=== PATIENT | female | born 1930 | race Caucasian/White ===

== ENCOUNTER 2018-06-18 16:21 | Emergency (ER) | payer OTHER, BC ==
--- NOTE | 2018-06-18 17:32 | ER Document Report ---
ED General - General TRAVEL OUTSIDE OF THE [place] IN LAST 30 DAYS: No <MIKE HANLEY - Last Filed: 06/18/18 19:23> <ONEIL ANAYA - Last Filed: 06/18/18 22:23> - General Chief Complaint: Near Syncope Stated Complaint: SYNCOPE Time Seen by Provider: 06/18/18 16:54 - HPI Notes: Patient is an 87-year-old female with a history of stage IV melanoma, COPD, bronchiectasis, hypertension, lymphedema RLL (with intermittent cellulitis hx) who presents to the ED with daughters complaining of a witnessed near syncopal event when there at the store this afternoon. Pt states that she started to feel lightheaded and weak. Daughter states that she was walking when she started to get weak and the daughter aided her to the ground. Daughter states that she was having difficulty speaking at that time. Her symptoms lasted for about 1-2 minutes and then resolved. Patient states that she could hear people talking to her, but did have trouble speaking. Patient states that she did have darker urine this morning and has not been drinking as much water she should have been. She otherwise is still eating and drinking without difficulties. She is urinating normally and having normal bowel movements. She has not noticed any black stool or hematochezia. She denies any drug allergies. She is not currently on any chemotherapy or radiation therapy. Her oncologist is at [facility]. Patient states that she otherwise feels back to normal. Denies any headache, fever, head injury, neck pain, changes in vision/speech/ mentation/hearing, URI, sore throat, chest pain, palpitations, cough, shortness of breath, wheeze, dyspnea, abdominal pain, nausea/vomiting/diarrhea, urinary retention, dysuria, hematuria, back pain, loss of control of bowel or bladder, numbness/tingling, saddle anesthesia, muscle paralysis/weakness, or rash. ( MIKE HANLEY) - Related Data Allergies/Adverse Reactions: codeine Allergy (Verified 06/18/18 19:38) morphine Allergy (Verified 06/18/18 19:38) Sulfa (Sulfonamide Antibiotics) Allergy (Verified 06/18/18 19:38) Past Medical History - Social History Smoking Status: Unknown if Ever Smoked Family History: Reviewed & Not Pertinent <MIKE HANLEY - Last Filed: 06/18/18 19:23> Review of Systems - Review of Systems -: Yes All other systems reviewed and negative <MIKE HANLEY - Last Filed: 06/18/18 19:23> Physical Exam <MIKE HANLEY - Last Filed: 06/18/18 19:23> <ONEIL ANAYA - Last Filed: 06/18/18 22:23> - Vital signs Vitals: Resp BP 5 L 162/67 H 06/18/18 18:28 06/18/18 18:28 - Notes Notes: PHYSICAL EXAMINATION: GENERAL: Well-appearing, well-nourished and in no acute distress. A&Ox4. Answers questions appropriately. happy, talkative, smiling, pleasant HEAD: Atraumatic, normocephalic. Non-tender. EYES: Pupils equal round and reactive to light, extraocular movements intact, sclera anicteric, conjunctiva are normal. No nystagmus. vis owens intact. ENT: EAC clear b/l. TM's intact b/l without erythema, fluid, or perforation. Nares patent and without discharge. oropharynx clear without exudates. No tonsilar hypertrophy or erythema. Moist mucous membranes. No sinus tenderness. NECK: Normal range of motion, supple without lymphadenopathy. No rigidity/ meningismus. No midline tenderness. LUNGS: Breath sounds clear to auscultation bilaterally and equal. No wheezes rales or rhonchi. HEART: Regular rate and rhythm without murmurs, rubs, gallops. ABDOMEN: Soft, nontender, nondistended abdomen. No guarding, no rebound. Normal bowel sounds present. No CVA tenderness bilaterally. Musculoskeletal: Ext b/l: FROM to passive/active. Strength 5+/5. No deficits noted. No bony tenderness of extremities. Extremities: trace pitting edema rt LE with mild erythema and + mild tenderness associated to the anterior lower leg. No fluctuance/abscess/streaks/ discharge. Peripheral pulses 2+. Capillary refill less than 2 seconds. NEUROLOGICAL: NIH 0. GCS 15. Cranial nerves grossly intact. Normal speech. Normal sensory, motor exams. Reflexes 2+ b/l. ERICH's negative. Pronator drift negative. Heel/tolentino, finger/nose wnl. PSYCH: Normal mood, normal affect. SKIN: see above. + small skin tear rt posterior forearm. (MIKE HANLEY) Course - Laboratory Result Diagrams: 06/18/18 17:26 06/18/18 17:26 <MIKE HANLEY - Last Filed: 06/18/18 19:23> - Laboratory Result Diagrams: 06/18/18 17:26 06/18/18 17:26 <ONEIL ANAYA - Last Filed: 06/18/18 22:23> - Re-evaluation Re-evalutation: 06/18/18 17:30 Pt was hesitant about having a head CT performed. I did discuss this with Dr. Clark who recommended d-dimer and obtaining the head CT, possible chest CT pending d-dimer. He states that she needs to have the head CT performed or she may have to sign out AMA. I did review this with the patient who is agreeable to the head CT and work up we have planned at this time. 06/18/18 19:21 CBC, CMP, cardiac enzyme x1/ekg, UA, head CT unremarkable for acute pathology. Transfer of care to Oneil LUO at bedside. (MIKE HANLEY) 06/18/18 2 sets of negative troponins. CTA with nodules noted but no acute findings including pulmonary embolism. Vital signs are unremarkable on my evaluation. Patient is comfortable and well-appearing. Has eaten, is requesting to go home. CT of the head was negative as well. Urinalysis is unremarkable. I discussed again with Dr. Clark. Because of patient's delta troponins, CTA, CT of the head, unremarkable laboratory workup, and monitoring without decompensation including no evidence of tachyarrhythmia at this time it is appropriate for patient to be discharged with very close primary care follow-up and strict return precautions. I discussed this in detail with family and patient, they state understanding and agreement with plan. (ONEIL ANAYA) - Vital Signs Vital signs: Temp Pulse Resp BP Pulse Ox 97.8 F 73 16 157/73 H 06/18/18 21:30 06/18/18 18:33 06/18/18 21:30 06/18/18 21:30 - Laboratory Laboratory results interpreted by me: 06/18/18 06/18/18 06/18/18 17:26 17:26 17:26 Hgb 11.0 L Hct 33.3 L RDW 15.0 H Seg Neutrophils % 82.2 H Lymphocytes % 7.4 L D-Dimer 1.53 H Glucose 153 H POC Glucose Urine Urobilinogen Urine Ascorbic Acid 06/18/18 06/18/18 18:20 19:33 Hgb Hct RDW Seg Neutrophils % Lymphocytes % D-Dimer Glucose POC Glucose 129 H Urine Urobilinogen 2.0 H Urine Ascorbic Acid 20 H Discharge <MIKE HANLEY - Last Filed: 06/18/18 19:23> <ONEIL ANAYA - Last Filed: 06/18/18 22:23> - Discharge Clinical Impression: Episode of syncope Qualifiers: Syncope type: unspecified Qualified Code(s): R55 - Syncope and collapse Condition: Stable Disposition: HOME, SELF-CARE Additional Instructions: The exact cause of your syncopal episode (passing out) is uncertain at this time. Your workup to this point did not show any concerning abnormalities including low blood counts, heart attack, blood clot, etc. Follow-up very closely with your primary provider, call them tomorrow for close follow-up. Take your CAT scan report from today's test to your provider. See additional instructions below. Syncopal Episode Syncope (fainting or near-fainting) can occur from many different health problems. Or it can be a simple fainting spell requiring no treatment. It is safe for you to go home, but further evaluation will likely be necessary. Your work-up may include tests for internal bleeding, heart disease, medication problems, or near-strokes. Tests are not always required, however, depending on the nature of your problem. The warning signs of an impending faint include: dizziness, lightheadedness , nausea, hot flashes, tingling, and weakness. If this happens, lay down and put your feet up, then wait until all of these symptoms have passed before standing up again. If these episodes become recurrent, or if you develop chest pain, heart palpitations, mental confusion, blurred vision, or headache, then you should call the physician, or go to the emergency room.
[2018-06-18 17:38] LABS: ABSOLUTE BASOPHILS # (AUTO) 0.1 10^3/uL (0.0-0.2); ABSOLUTE EOSINOPHILS # (AUTO) 0.1 10^3/uL (0.0-0.6); ABSOLUTE LYMPHOCYTES (AUTO) 0.7 10^3/uL (0.5-4.7); ABSOLUTE MONOCYTES (AUTO) 0.8 10^3/uL (0.1-1.4); ABSOLUTE NEUT (AUTO) 7.6 10^3/uL (1.7-8.2); BASOPHILS % (AUTO) 0.8 % (0-2); HEMATOCRIT 33.3 % (36.0-47.0); LYMPHOCYTES % (AUTO) 7.4 % (13-45); MEAN CORPUSCULAR HEMOGLOBIN 27.4 pg (27.0-33.4); MEAN CORPUSCULAR HGB CONC 32.9 g/dL (32.0-36.0); MEAN CORPUSCULAR VOLUME 83 fl (80-97); MONOCYTES % (AUTO) 8.6 % (3-13); PLATELET COUNT 310 10^3/uL (150-450); SEGMENTED NEUTROPHILS % (AUTO) 82.2 % (42-78); TOTAL CELLS COUNTED % (AUTO) 100 %; WHITE BLOOD COUNT 9.2 10^3/uL (4.0-10.5)
[2018-06-18 17:55] LABS: ALANINE AMINOTRANSFERASE 21 U/L (9-52); ALBUMIN 3.9 g/dL (3.5-5.0); ALKALINE PHOSPHATASE 84 U/L (38-126); ANION GAP 10 (5-19); ASPARTATE AMINO TRANSFERASE 24 U/L (14-36); BILIRUBIN,DIRECT 0.3 mg/dL (0.0-0.4); BILIRUBIN,TOTAL 0.4 mg/dL (0.2-1.3); BLOOD UREA NITROGEN 18 mg/dL (7-20); CALCIUM 9.5 mg/dL (8.4-10.2); CARBON DIOXIDE 29 mmol/L (22-30); CHLORIDE 99 mmol/L (98-107); CREATINE KINASE 53 U/L (30-135); GLUCOSE 153 mg/dL (75-110); POTASSIUM 4.2 mmol/L (3.6-5.0); SODIUM 137.8 mmol/L (137-145)
[2018-06-18 18:11] LABS: CREATINE KINASE MB 1.93 ng/mL (<4.55)
[2018-06-18 18:13] LABS: TROPONIN I < 0.012 ng/mL
--- NOTE | 2018-06-18 18:18 | RADIOLOGY REPORT (SQ) ---
EXAM DESCRIPTION: CT HEAD WITHOUT COMPLETED DATE/TIME: 06/18/2018 6:06 pm REASON FOR STUDY: lightheaded COMPARISON: None. TECHNIQUE: Axial images acquired through the brain without intravenous contrast. Images reviewed wi th bone, brain and subdural windows. Additional sagittal and coronal reconstructions were generated. Images stored on PACS. All CT scanners at this facility use dose modulation, iterative reconstruction, and/or weight based d osing when appropriate to reduce radiation dose to as low as reasonably achievable (ALARA). [facility]: Dose Right [facility]: CareDose [facility]: Dose Right [facility]: Teradose 4D [facility]: Smart [employer] RADIATION DOSE: CT Rad equipment meets quality standard of care and radiation dose reduction techniq ues were employed. CTDIvol: 23.1 mGy. DLP: 487 mGy-cm.mGy. LIMITATIONS: None. FINDINGS: VENTRICLES: Prominent. CEREBRUM: No masses. No hemorrhage. No midline shift. Areas of low density in the white matter mos t likely due to chronic micro-vascular ischemic change. No evidence for acute infarction. CEREBELLUM: No masses. No hemorrhage. No alteration of density. No evidence for acute infarction. EXTRAAXIAL SPACES: Age-related involutional change. No fluid collections. No masses. ORBITS AND GLOBE: No intra- or extraconal masses. Normal contour of globe without masses. CALVARIUM: No fracture. PARANASAL SINUSES: No fluid or mucosal thickening. SOFT TISSUES: No mass or hematoma. OTHER: No other significant finding. IMPRESSION: CHRONIC CHANGES OF ATROPHY AND MICROVASCULAR ISCHEMIA. NO ACUTE PROCESS. EVIDENCE OF ACUTE STROKE: NO. TECHNICAL DOCUMENTATION: JOB ID: [id number] Quality ID # [id number]: Final reports with documentation of one or more dose reduction techniques (e.g., Au tomated exposure control, adjustment of the mA and/or kV according to patient size, use of iterative reconstruction technique) 2010 [employer]- All Rights Reserved Reading location - IP/workstation name: [email or web address]
[2018-06-18 19:13] LABS: APPEARANCE,URINE SLIGHTLY-CLOUDY; BILIRUBIN,URINE NEGATIVE (NEGATIVE); COLOR,URINE YELLOW; GLUCOSE, URINE NEGATIVE (NEGATIVE); KETONES,URINE NEGATIVE (NEGATIVE); LEUKOCYTE ESTERASE,URINE NEGATIVE (NEGATIVE); NITRITE,URINE NEGATIVE (NEGATIVE); PROTEIN,URINE NEGATIVE (NEGATIVE); URINE SPECIFIC GRAVITY 1.018
--- NOTE | 2018-06-18 20:42 | RADIOLOGY REPORT (SQ) ---
EXAM DESCRIPTION: CTA CHEST COMPLETED DATE/TIME: 06/18/2018 8:27 pm REASON FOR STUDY: near syncope, elevated dimer COMPARISON: None. TECHNIQUE: CT scan of the chest performed using helical scanning technique with dynamic intravenous contrast injection. Images reviewed with lung, soft tissue and bone windows. Reconstructed coronal and sagittal MPR images reviewed. Additional 3 dimensional post-processing performed to develop Maximal Intensity Projection images (MS P). All images stored on PACS. All CT scanners at this facility use dose modulation, iterative reconstruction, and/or weight based d osing when appropriate to reduce radiation dose to as low as reasonably achievable (ALARA). [facility]: Dose Right [facility]: CareDose [facility]: Dose Right [facility]: Teradose 4D [facility]: [place] CONTRAST TYPE AND DOSE: contrast/concentration: Isovue 370.00 mg/ml; Total Contrast Delivered: 60.0 ml; Total Saline Delivered: 70.0 ml RENAL FUNCTION: BUN 18 creatinine 0.69 RADIATION DOSE: CT Rad equipment meets quality standard of care and radiation dose reduction techniq ues were employed. CTDIvol: 9.9 - 14.3 mGy. DLP: 510 mGy-cm. . LIMITATIONS: None. FINDINGS: LUNGS AND PLEURA: Multiple small pulmonary nodules are present. The largest is in the rig ht lower lobe and measures 9 mm. AORTA AND GREAT VESSELS: No aneurysm. No dissection. HEART: No pericardial effusion. No significant coronary artery calcifications. PULMONARY ARTERIES: No emboli visualized in the main pulmonary arteries or the segmental branches. HILAR AND MEDIASTINAL STRUCTURES: No identified masses or abnormal nodes. HARDWARE: None in the chest. UPPER ABDOMEN: No significant findings. Limited exam. THYROID AND OTHER SOFT TISSUES: No masses. No adenopathy. BONES: No acute or significant finding. 3D MIPS: Confirm above findings. OTHER: No other significant finding. IMPRESSION: 1. There is no evidence of pulmonary emboli. 2. Multiple small pulmonary nodules. The largest measures 9 mm. COMMENT: FLEISCHNER CRITERIA FOR FOLLOW-UP OF PULMONARY NODULES Incidentally detected new nodules in persons 35 or older. HIGH RISK: History of smoking or other known risk factors. >8mm multiple solid nodules: LOW RISK: CT 3-6 mo; then consider CT 18-24 mo. HIGH RISK: CT 3-6 mo; th en CT 18-24 mo. Quality ID # [id number]: Final reports with documentation of one or more dose reduction techniques (e.g., Au tomated exposure control, adjustment of the mA and/or kV according to patient size, use of iterative reconstruction technique) TECHNICAL DOCUMENTATION: JOB ID: [id number] [employer]- All Rights Reserved Reading location - IP/workstation name: [email or web address]
[2018-06-18 21:39] VITALS: BP 157/73
--- NOTE | 2018-06-18 22:32 | EKG REPORT ---
SEVERITY:- BORDERLINE ECG - SINUS RHYTHM BORDERLINE R WAVE PROGRESSION, ANTERIOR LEADS : Confirmed by: Leanna Gage 18-Jun-2018 22:31:51
== END 2018-06-18 21:56 | disposition home or self-care (01) ==
LOC: ER 16:21
DX: R55 Syncope and collapse (principal); S51.811A Laceration without foreign body of right forearm, initial encounter; X58.XXXA Exposure to other specified factors, initial encounter; R60.0 Localized edema; L53.9 Erythematous condition, unspecified; J44.9 Chronic obstructive pulmonary disease, unspecified; I10 Essential (primary) hypertension; R39.89 Other symptoms and signs involving the genitourinary system; Z85.820 Personal history of malignant melanoma of skin; Z88.5 Allergy status to narcotic agent
CPT/HCPCS: 36415; 70450; 71275; 80053; 81001; 82550; 82553; 82962; 84484; 85025; 85379; 93005; 93010; 99285